=== PATIENT | male | born 1970 | race Caucasian/White ===

== ENCOUNTER 2016-05-11 16:35 | Emergency (ER) | payer SELFPAY ==
[~2016-05-11 16:35] MED LIST: FLEXERIL10 MG PO; LITHIUM CARBON300 M1 PO; MOTRIN600 MG PO
== END 2016-05-11 17:31 | disposition left against medical advice (07) ==
LOC: EME 16:35
DX: L02.414 Cutaneous abscess of left upper limb (principal); Z53.21 Procedure and treatment not carried out due to patient leaving prior to being seen by health care provider